=== PATIENT | male | born 1955 | race African-American/Black ===

== ENCOUNTER 2020-10-20 09:16 | Inpatient (IN) | payer MEDICAID ==
[~2020-10-20] VITALS: Ht 177.8 cm; Wt 73.9 kg
[~2020-10-20 09:16] MED LIST: BUME1TAB8 PO; CARV12.545 MT; SPIR25TA MT
[2020-10-20] MEDS ORDERED: ONDANSETRON HCL 4MG/2ML INJ IV STA (09:26)
[2020-10-20] MEDS ORDERED: SODIUM CHLORIDE 0.9% 1,000 ML IV ONE ×2 (09:30→11:45)
[2020-10-20 10:13] LABS: CHLORIDE 105 mEq/L (98-107)
[2020-10-20 10:16] LABS: BASOPHILS % 3.5 % (0.0-2.0); EOSINOPHILS % 1.9 % (0.0-5.0); HEMATOCRIT. 40.8 % (42.0-52.0); HEMOGLOBIN. 13.1 g/dL (14.0-18.0); INR 2.9; LYMPHOCYTES % 8.1 % (20.0-50.0); MEAN CORPUSCULAR HEMOGLOBIN 27.5 pg (28.0-32.0); MEAN CORPUSCULAR VOLUME 85.8 fL (80.0-94.0); MEAN PLATELET VOLUME 10.5 fl (7.4-10.4); MONOCYTES % 1.9 % (2.0-8.0); NEUTROPHILS % 84.6 % (40.0-76.0); PLATELET 477 x1000/uL (130-400); PROTHROMBIN TIME 28.2 sec (9.6-11.0); RED BLOOD CELL COUNT 4.76 mill/uL (4.7-6.1); RED CELL DISTRIBUTION WIDTH 21.2 % (11.6-14.6)
[2020-10-20] MEDS ORDERED: ENOXAPARIN 40MG/0.4ML SYR SUBCUT SCH (13:45)
[2020-10-20] MEDS ORDERED: DOCUSATE SODIUM 100MG CAPSULE PO PRN (13:45)
[2020-10-20] MEDS ORDERED: MAGNESIUM/ALUMINUM HYDROXIDE/SIMETHICONE 30ML UDC PO PRN (13:45)
[2020-10-20] MEDS ORDERED: KETOROLAC 15MG/ML VIAL IV PRN (13:45)
[2020-10-20] MEDS ORDERED: GUAIFENESIN 200MG/10ML SUGAR FREE UDC PO PRN (13:45)
[2020-10-20] MEDS ORDERED: NITROGLYCERIN 0.4MG TABLET SL SL PRN (13:45)
[2020-10-20] MEDS ORDERED: IPRATROPIUM/ALBUTEROL 0.5-3(2.5)MG/3ML NEB NEB PRN (13:45)
[2020-10-20] MEDS ORDERED: CLONIDINE 0.1MG TABLET PO PRN (13:45)
[2020-10-20] MEDS ORDERED: ACETAMINOPHEN 325MG TABLET PO PRN ×2 (13:45)
[2020-10-20] MEDS ORDERED: LORAZEPAM 2MG/ML CPJ IV PRN (13:45)
[2020-10-20] MEDS ORDERED: ONDANSETRON HCL 4MG/2ML INJ IV PRN (13:45)
[2020-10-20 15:57] VITALS: BP 147/91
[2020-10-20 16:00] VITALS: BP 140/80
[2020-10-20 16:48] LABS: CREATINE KINASE MB FRACTION 2.4 ng/mL (0.5-3.6)
[2020-10-20 16:59] LABS: FOLIC ACID (FOLATE) SERUM >20 ng/mL ng/mL (>5.38)
[2020-10-20 17:11] LABS: VITAMIN B12 SERUM >2000 pg/mL pg/mL (211-911)
[2020-10-20] MEDS: CARVEDILOL 3.125 MG TABLET PO SCH (17:42)
[2020-10-20] MEDS: METOCLOPRAMIDE 10MG/10 ML UDC PO SCH (17:42)
[2020-10-20] MEDS: SUCRALFATE 1 G/10 ML UDC PO SCH ×2 (17:43→20:53)
[2020-10-20 20:00] VITALS: BP 97/65
[2020-10-20] MEDS ORDERED: IMAT100T2 MT (20:03)
[2020-10-20] MEDS ORDERED: WARF-53 PO ×2 (20:03)
[2020-10-20] MEDS ORDERED: IMAT400T2 PO (20:03)
[2020-10-20] MEDS ORDERED: ASPI-1406 PO (20:03)
[2020-10-20] MEDS ORDERED: LOV40 SQ (20:03)
[2020-10-20] MEDS ORDERED: WARF10TA44 PO (20:03)
[2020-10-20] MEDS ORDERED: MECL-159 PO (20:03)
[2020-10-20] MEDS ORDERED: *PATIENT'S OWN MEDICATION STORAGE XX SCH (20:15)
[2020-10-20] MEDS: ACETAMINOPHEN 325MG TABLET PO PRN (20:53)
[2020-10-20] MEDS ORDERED: ZOLPIDEM TARTRATE 5MG TABLET PO PRN (21:00)
[2020-10-21] VITALS: BP 98/35
[2020-10-21 00:44] LABS: CREATINE KINASE MB FRACTION 2.1 ng/mL (0.5-3.6)
[2020-10-21] MEDS: ACETAMINOPHEN 325MG TABLET PO PRN (01:00)
[2020-10-21 01:11] LABS: CLARITY URINE CLEAR (CLEAR); COLOR URINE YELLOW (YELLOW); KETONES URINE 1+ (NEGATIVE); LEUKOCYTE ESTERASE URINE NEGATIVE (NEGATIVE); NITRITE URINE NEGATIVE (NEGATIVE); OCCULT BLOOD URINE NEGATIVE (NEGATIVE); PH URINE 5.5 (4.5-8.0); PROTEIN URINE 1+ (NEGATIVE); SPECIFIC GRAVITY URINE 1.024 (1.005-1.030)
[2020-10-21 01:15] LABS: *AMPHETAMINES SCREEN URINE NEGATIVE (NEGATIVE); *BARBITURATES SCREEN URINE NEGATIVE (NEGATIVE); *BENZODIAZEPINES SCREEN URINE NEGATIVE (NEGATIVE); *COCAINE SCREEN URINE NEGATIVE (NEGATIVE); METHADONE URINE SCREEN NEGATIVE (NEGATIVE); OPIATES URINE SCREEN NEGATIVE (NEGATIVE)
[2020-10-21 01:16] LABS: CANNABINOID URINE SCREEN PRESUMTIVE POSITIVE (NEGATIVE); PHENCYCLIDINE URINE SCREEN NEGATIVE (NEGATIVE)
[2020-10-21 04:00] VITALS: BP 111/70
[2020-10-21] MEDS: SUCRALFATE 1 G/10 ML UDC PO SCH ×4 (06:45→21:16)
[2020-10-21] MEDS: METOCLOPRAMIDE 10MG/10 ML UDC PO SCH ×3 (06:45→20:31)
[2020-10-21] MEDS: CARVEDILOL 3.125 MG TABLET PO SCH ×2 (06:46→18:00)
[2020-10-21 06:52] LABS: BASOPHILS % 1.2 % (0.0-2.0); CHLORIDE 108 mEq/L (98-107); EOSINOPHILS % 0.2 % (0.0-5.0); HEMATOCRIT. 35.4 % (42.0-52.0); HEMOGLOBIN. 11.2 g/dL (14.0-18.0); LYMPHOCYTES % 7.7 % (20.0-50.0); MEAN CORPUSCULAR HEMOGLOBIN 26.9 pg (28.0-32.0); MEAN CORPUSCULAR VOLUME 84.9 fL (80.0-94.0); MONOCYTES % 3.6 % (2.0-8.0); NEUTROPHILS % 87.3 % (40.0-76.0); PLATELET 381 x1000/uL (130-400); RED BLOOD CELL COUNT 4.17 mill/uL (4.7-6.1); RED CELL DISTRIBUTION WIDTH 21.2 % (11.6-14.6)
[2020-10-21 07:04] LABS: PHOSPHORUS 2.2 mg/dL (2.5-4.9)
[2020-10-21 08:00] VITALS: BP 114/75
[2020-10-21 12:20] VITALS: BP 101/72
[2020-10-21] MEDS: PANTOPRAZOLE SODIUM 40 MG/VIAL IV SCH (13:28)
[2020-10-21 17:50] VITALS: BP 99/73
[2020-10-21 20:00] VITALS: BP 96/58
[2020-10-22] VITALS: BP 97/66
[2020-10-22 04:00] VITALS: BP 102/66
[2020-10-22] MEDS: CARVEDILOL 3.125 MG TABLET PO SCH ×2 (05:58→17:34)
[2020-10-22] MEDS: METOCLOPRAMIDE 10MG/10 ML UDC PO SCH ×3 (05:58→17:35)
[2020-10-22] MEDS: SUCRALFATE 1 G/10 ML UDC PO SCH ×4 (05:58→20:13)
[2020-10-22 08:00] VITALS: BP 102/67
[2020-10-22] MEDS: PANTOPRAZOLE SODIUM 40 MG/VIAL IV SCH (08:51)
[2020-10-22] MEDS ORDERED: SODIUM CHLORIDE 0.9% 1,000 ML IV SCH (10:45)
[2020-10-22 12:00] VITALS: BP 105/73
[2020-10-22 16:00] VITALS: BP 98/65
[2020-10-22 20:00] VITALS: BP 114/61
[2020-10-22] MEDS ORDERED: CARVEDILOL 12.5MG TABLET PO SCH (22:50)
[2020-10-23] VITALS: BP 99/61
[2020-10-23 04:00] VITALS: BP 105/65
[2020-10-23] MEDS: SUCRALFATE 1 G/10 ML UDC PO SCH ×2 (05:54→10:59)
[2020-10-23] MEDS: METOCLOPRAMIDE 10MG/10 ML UDC PO SCH ×2 (05:54→10:59)
[2020-10-23 08:00] VITALS: BP 115/86
[2020-10-23] MEDS ORDERED: POTASSIUM CHLORIDE 20MEQ TABLET SR PO NR (09:15)
[2020-10-23] MEDS: PANTOPRAZOLE SODIUM 40 MG/VIAL IV SCH (09:35)
[2020-10-23] MEDS ORDERED: POTASSIUM-SODIUM PHOSPHATE POWDER PACKET PO NR (10:45)
[2020-10-23 11:14] VITALS: BP 115/86
== END 2020-10-23 12:45 | disposition home or self-care (01) | DRG 812 ==
LOC: ER 09:16 → 7EST 12:50 → EDBEDREQ 12:57 → EDBEDREQTM 12:57 → ENRESERV 13:21
PROVIDERS: ADMIT Internal Medicine; ATTEND Internal Medicine
DX: T40.7X1A Poisoning by cannabis (derivatives), accidental (unintentional), initial encounter (principal); C95.90 Leukemia, unspecified not having achieved remission; I48.91 Unspecified atrial fibrillation; E86.0 Dehydration; F12.10 Cannabis abuse, uncomplicated; D63.8 Anemia in other chronic diseases classified elsewhere; I10 Essential (primary) hypertension; I25.10 Atherosclerotic heart disease of native coronary artery without angina pectoris; Z79.899 Other long term (current) drug therapy; Z71.51 Drug abuse counseling and surveillance of drug abuser
CPT/HCPCS: 36415; 80053; 80061; 80305; 81003; 82550; 82553; 82607; 82746; 83036; 83540; 83550; 83735; 84100; 84484; 85025; 93005; 93970; 99285; C9113; J2405; J7030; J8597

== ENCOUNTER 2021-12-19 02:50 | Inpatient (IN) | payer MEDICAID ==
[~2021-12-19] VITALS: Ht 182.9 cm; Wt 71.4 kg
[~2021-12-19 02:50] MED LIST changes: +ASPI-1406 PO; +ENOX40SY27 SQ; +IMAT100T2 MT; +IMAT400T7 PO; +MECL-159 PO; +WARF-53 PO; +WARF10TA44 PO
[2021-12-19] MEDS ORDERED: IPRATROPIUM BROMIDE (0.02%) 0.5MG/2.5ML NEB HHN STA (02:53)
[2021-12-19] MEDS ORDERED: ALBUTEROL (0.083%) 2.5MG/3ML NEB HHN STA (02:53)
[2021-12-19] MEDS ORDERED: FUROSEMIDE 40MG/4ML VIAL IV ONE (03:00)
[2021-12-19 03:20] LABS: HEMATOCRIT. 33.8 % (42.0-52.0); HEMOGLOBIN. 10.9 g/dL (14.0-18.0); MEAN CORPUSCULAR HEMOGLOBIN 32.5 pg (28.0-32.0); MEAN CORPUSCULAR VOLUME 100.5 fL (80.0-94.0); MEAN PLATELET VOLUME 9.1 fl (7.4-10.4); PLATELET 598 x1000/uL (130-400); RED BLOOD CELL COUNT 3.36 mill/uL (4.7-6.1); RED CELL DISTRIBUTION WIDTH 17.4 % (11.6-14.6)
[2021-12-19 03:25] LABS: CHLORIDE 107 mEq/L (98-107)
[2021-12-19 03:52] LABS: PLATELET ESTIMATE INCREASED
[2021-12-19] MEDS ORDERED: FUROSEMIDE 40MG/4ML VIAL IV NR (05:45)
[2021-12-19 09:58] LABS: BG BASE EXCESS 2.8 mmol/L (-2.0-2.0); BG CARBOXYHEMOGLOBIN 0.7 % (0.5-1.5); BG DEOXYHEMOGLOBIN 2.6 % (0.0-5.0); BG FRACTION INSPIRED OXYGEN 36; BG HCO3 ACT 26.4 mmol/L (22.0-26.0); BG METHEMOGLOBIN 0.4 % (0.0-1.5); BG OXYGEN SATURATION 97.4 % (92.0-98.5); BG OXYHEMOGLOBIN 96.3 % (94.0-97.0); BG PH 7.471 (7.350-7.450); BG SAMPLE SITE RIGHT BRACHIAL; BG TOTAL HEMOGLOBIN 11.8 g/dL (12.0-18.0); BG VENT MODE NASAL CANNULA
[2021-12-19] MEDS ORDERED: DIPHENHYDRAMINE 50MG/ML VIAL IV PRN (10:00)
[2021-12-19] MEDS ORDERED: CLONIDINE 0.1MG TABLET PO PRN (10:00)
[2021-12-19] MEDS ORDERED: IPRATROPIUM/ALBUTEROL 0.5-3(2.5)MG/3ML NEB HHN PRN (10:00)
[2021-12-19] MEDS ORDERED: ZOLPIDEM TARTRATE 5MG TABLET PO PRN (10:00)
[2021-12-19] MEDS ORDERED: MAGNESIUM HYDROXIDE 400MG/5ML 30ML UDC PO PRN (10:00)
[2021-12-19] MEDS ORDERED: GUAIFENESIN 200MG/10ML SUGAR FREE UDC PO PRN (10:00)
[2021-12-19] MEDS ORDERED: MAGNESIUM/ALUMINUM HYDROXIDE/SIMETHICONE 30ML UDC PO PRN (10:00)
[2021-12-19] MEDS ORDERED: POTASSIUM CHLORIDE 20MEQ TABLET SR PO NR (10:00)
[2021-12-19] MEDS ORDERED: ACETAMINOPHEN 325MG TABLET PO PRN ×2 (10:00)
[2021-12-19] MEDS ORDERED: ENOXAPARIN 40MG/0.4ML SYR SUBCUT SCH (10:37)
[2021-12-19 12:00] VITALS: BP 93/71
[2021-12-19] MEDS ORDERED: IPRATROPIUM/ALBUTEROL 0.5-3(2.5)MG/3ML NEB HHN SCH (12:00)
[2021-12-19 12:06] VITALS: BP 93/71
[2021-12-19] MEDS ORDERED: CHOL400D7 MT (13:40)
[2021-12-19] MEDS ORDERED: BUME1TAB33 MT (13:40)
[2021-12-19] MEDS ORDERED: MECL-264 (13:40)
[2021-12-19] MEDS ORDERED: ALLO300T2 MT (13:40)
[2021-12-19] MEDS ORDERED: EMPA25TA MT (13:40)
[2021-12-19] MEDS ORDERED: ALLO100T57 PO (13:40)
[2021-12-19] MEDS ORDERED: ATOR80TA MT (13:40)
[2021-12-19] MEDS ORDERED: METH-653 GT (13:40)
[2021-12-19] MEDS ORDERED: RIVA20TA MT (13:40)
[2021-12-19] MEDS ORDERED: OMEP20CA14 PO (13:40)
[2021-12-19] MEDS ORDERED: FERR325T6 MT (13:40)
[2021-12-19] MEDS: SODIUM CHLORIDE 0.9% INJ 3ML FLUSH IVF SCH ×2 (14:00→22:00)
[2021-12-19] MEDS: BUDESONIDE 0.5MG/2ML NEB HHN SCH ×2 (14:14→22:55)
[2021-12-19 16:00] VITALS: BP 101/73
[2021-12-19] MEDS: POTASSIUM CHLORIDE 20MEQ TABLET SR PO SCH (17:04)
[2021-12-19] MEDS: ONDANSETRON HCL 4MG/2ML INJ IV PRN (17:43)
[2021-12-19] MEDS ORDERED: METHOCARBAMOL 750MG TABLET PO PRN (18:00)
[2021-12-19] MEDS ORDERED: MECLIZINE 25MG TABLET PO PRN (18:00)
[2021-12-19] MEDS: INSULIN LISPRO 100 UNITS/ML SUBCUT SCH ×2 (18:10→21:00)
[2021-12-19] MEDS ORDERED: DEXTROSE 50% WATER 50ML SYRINGE IV PRN (18:15)
[2021-12-19 20:00] VITALS: BP 110/79
[2021-12-19] MEDS: ATORVASTATIN CALCIUM 40MG TABLET PO SCH (20:56)
[2021-12-19] MEDS: BUMETANIDE 1MG/4ML VIAL IV SCH (20:57)
[2021-12-19] MEDS: OMEPRAZOLE 20MG CAPSULE EXTENDED RELEASE PO SCH (20:58)
[2021-12-19] MEDS: BLOOD SUGAR DIAGNOSTIC STRIP TEST SCH (21:00)
[2021-12-19] MEDS ORDERED: FAMOTIDINE 20MG TABLET PO SCH (21:00)
[2021-12-20] VITALS: BP 103/64
[2021-12-20 04:00] VITALS: BP 98/68
[2021-12-20] MEDS: SODIUM CHLORIDE 0.9% INJ 3ML FLUSH IVF SCH ×3 (05:50→21:12)
[2021-12-20] MEDS: BLOOD SUGAR DIAGNOSTIC STRIP TEST SCH ×4 (05:52→21:11)
[2021-12-20 06:50] LABS: BASOPHILS % 0.6 % (0.0-2.0); EOSINOPHILS % 4.9 % (0.0-5.0); HEMATOCRIT. 33.3 % (42.0-52.0); LYMPHOCYTES % 9.8 % (20.0-50.0); MEAN CORPUSCULAR HEMOGLOBIN 32.6 pg (28.0-32.0); MEAN CORPUSCULAR VOLUME 99.3 fL (80.0-94.0); MEAN PLATELET VOLUME 9.9 fl (7.4-10.4); MONOCYTES % 5.7 % (2.0-8.0); PLATELET 556 x1000/uL (130-400); RED BLOOD CELL COUNT 3.36 mill/uL (4.7-6.1); RED CELL DISTRIBUTION WIDTH 17.2 % (11.6-14.6)
[2021-12-20] MEDS: INSULIN LISPRO 100 UNITS/ML SUBCUT SCH ×4 (07:43→21:00)
[2021-12-20] MEDS: BUDESONIDE 0.5MG/2ML NEB HHN SCH ×2 (07:47→20:46)
[2021-12-20 07:49] LABS: CHLORIDE 104 mEq/L (98-107)
[2021-12-20 07:54] LABS: PHOSPHORUS 3.2 mg/dL (2.5-4.9)
[2021-12-20 08:00] VITALS: BP 115/76
[2021-12-20] MEDS: ALLOPURINOL 300 MG TABLET PO SCH ×2 (08:46→16:33)
[2021-12-20] MEDS: OMEPRAZOLE 20MG CAPSULE EXTENDED RELEASE PO SCH ×2 (08:46→21:11)
[2021-12-20] MEDS: GLEEVEC 400 MG PO SCH (08:46)
[2021-12-20] MEDS: POTASSIUM CHLORIDE 20MEQ TABLET SR PO SCH ×3 (08:46→16:32)
[2021-12-20] MEDS: FERROUS SULFATE 325MG TABLET PO SCH (08:46)
[2021-12-20] MEDS: CHOLECALCIFEROL (D3) 1000 UNIT TABLET PO SCH (08:47)
[2021-12-20] MEDS ORDERED: FUROSEMIDE 40MG/4ML VIAL IVP SCH (09:00)
[2021-12-20 09:12] LABS: BG BASE EXCESS 0.3 mmol/L (-2.0-2.0); BG CARBOXYHEMOGLOBIN 0.2 % (0.5-1.5); BG DEOXYHEMOGLOBIN 8.1 % (0.0-5.0); BG FRACTION INSPIRED OXYGEN 21; BG HCO3 ACT 24.1 mmol/L (22.0-26.0); BG METHEMOGLOBIN 0.3 % (0.0-1.5); BG OXYGEN SATURATION 91.9 % (92.0-98.5); BG OXYHEMOGLOBIN 91.4 % (94.0-97.0); BG PCO2 35.9 mmHg (35.0-45.0); BG PH 7.445 (7.350-7.450); BG PO2 65.1 mmHg (75.0-100.0); BG SAMPLE SITE RIGHT FEMORAL; BG TOTAL HEMOGLOBIN 11.5 g/dL (12.0-18.0); BG VENT MODE ROOM AIR
[2021-12-20] MEDS: BUMETANIDE 1MG/4ML VIAL IV SCH ×2 (11:08→21:11)
[2021-12-20] MEDS: ONDANSETRON HCL 4MG/2ML INJ IV PRN (11:17)
[2021-12-20 12:00] VITALS: BP 107/77
[2021-12-20] MEDS ORDERED: MAGNESIUM 1 G PREMIX 100 ML IV SCH (12:00)
[2021-12-20 16:00] VITALS: BP 93/70
[2021-12-20] MEDS: RIVAROXABAN 20 MG TABLET PO SCH (16:33)
[2021-12-20] MEDS ORDERED: LOPERAMIDE HCL 2MG CAPSULE PO PRN (18:00)
[2021-12-20 20:00] VITALS: BP 110/78
[2021-12-20] MEDS: ATORVASTATIN CALCIUM 40MG TABLET PO SCH (21:11)
[2021-12-21] VITALS: BP 101/70
[2021-12-21 04:00] VITALS: BP 115/72
[2021-12-21] MEDS: SODIUM CHLORIDE 0.9% INJ 3ML FLUSH IVF SCH ×3 (06:00→21:24)
[2021-12-21] MEDS: BLOOD SUGAR DIAGNOSTIC STRIP TEST SCH ×4 (06:51→21:00)
[2021-12-21] MEDS: OMEPRAZOLE 20MG CAPSULE EXTENDED RELEASE PO SCH ×2 (07:40→21:23)
[2021-12-21 08:00] VITALS: BP 104/71
[2021-12-21] MEDS: INSULIN LISPRO 100 UNITS/ML SUBCUT SCH ×4 (08:10→21:00)
[2021-12-21] MEDS: BUMETANIDE 1MG/4ML VIAL IV SCH ×2 (08:28→21:23)
[2021-12-21] MEDS: ONDANSETRON HCL 4MG/2ML INJ IV PRN ×2 (08:28→14:01)
[2021-12-21] MEDS: BUDESONIDE 0.5MG/2ML NEB HHN SCH ×2 (08:51→21:23)
[2021-12-21] MEDS: LOSARTAN POTASSIUM 25 MG TABLET PO SCH (08:55)
[2021-12-21] MEDS: ALLOPURINOL 300 MG TABLET PO SCH ×2 (08:55→17:05)
[2021-12-21] MEDS: CHOLECALCIFEROL (D3) 1000 UNIT TABLET PO SCH (08:55)
[2021-12-21] MEDS: POTASSIUM CHLORIDE 20MEQ TABLET SR PO SCH (08:55)
[2021-12-21] MEDS: FERROUS SULFATE 325MG TABLET PO SCH (08:55)
[2021-12-21] MEDS: GLEEVEC 400 MG PO SCH (09:00)
[2021-12-21] MEDS ORDERED: FUROSEMIDE 40MG/4ML VIAL IVP SCH (09:00)
[2021-12-21] MEDS ORDERED: MAGNESIUM 4 G PREMIX 100 ML IV SCH (11:00)
[2021-12-21 12:00] VITALS: BP 104/76
[2021-12-21 13:25] LABS: CHLORIDE 103 mEq/L (98-107)
[2021-12-21 16:00] VITALS: BP 96/69
[2021-12-21] MEDS: RIVAROXABAN 20 MG TABLET PO SCH (17:05)
[2021-12-21 20:00] VITALS: BP 117/63
[2021-12-21] MEDS: ATORVASTATIN CALCIUM 40MG TABLET PO SCH (21:23)
[2021-12-22] VITALS (11 sets, daily range): BP systolic 98–146; BP diastolic 43–104
[2021-12-22] MEDS: SODIUM CHLORIDE 0.9% INJ 3ML FLUSH IVF SCH ×2 (05:40→14:14)
[2021-12-22] MEDS: OMEPRAZOLE 20MG CAPSULE EXTENDED RELEASE PO SCH ×2 (07:01→20:34)
[2021-12-22] MEDS: BLOOD SUGAR DIAGNOSTIC STRIP TEST SCH ×3 (07:02→20:34)
[2021-12-22] MEDS: INSULIN LISPRO 100 UNITS/ML SUBCUT SCH ×3 (07:02→20:34)
[2021-12-22] MEDS ORDERED: NICARDIPINE 100MCG/ML 10ML VIAL (CATH LAB) IV ONE (08:00)
[2021-12-22] MEDS ORDERED: NITROGLYCERIN 50MCG/ML 10ML VIAL (CATH LAB) IV ONE (08:00)
[2021-12-22] MEDS: CHOLECALCIFEROL (D3) 1000 UNIT TABLET PO SCH (08:02)
[2021-12-22] MEDS: POTASSIUM CHLORIDE 20MEQ TABLET SR PO SCH (08:02)
[2021-12-22] MEDS: GLEEVEC 400 MG PO SCH (08:02)
[2021-12-22] MEDS: FERROUS SULFATE 325MG TABLET PO SCH (08:02)
[2021-12-22] MEDS: ALLOPURINOL 300 MG TABLET PO SCH ×2 (08:03→18:15)
[2021-12-22] MEDS: LOSARTAN POTASSIUM 25 MG TABLET PO SCH (08:03)
[2021-12-22] MEDS: BUMETANIDE 1MG/4ML VIAL IV SCH ×2 (08:36→20:34)
[2021-12-22] MEDS: BUDESONIDE 0.5MG/2ML NEB HHN SCH (09:15)
[2021-12-22] MEDS ORDERED: LIDOCAINE HCL 2% JELLY 5ML ONE ×2 (14:43→15:21)
[2021-12-22] MEDS ORDERED: MIDAZOLAM HCL 2 MG/2 ML VIAL ONE ×2 (14:46→15:19)
[2021-12-22] MEDS ORDERED: FENTANYL CITRATE/PF 50MCG/ML 2ML VIAL ONE (14:46)
[2021-12-22] MEDS ORDERED: HEPARIN SODIUM 1,000 UNIT/1ML VIAL IV ONE (14:46)
[2021-12-22] MEDS ORDERED: TETRACAINE/BENZOCAINE/BUTAMBEN 20 GM SPRAY MM ONE ×2 (14:47→15:20)
[2021-12-22] MEDS ORDERED: IODIXANOL 320MG/ML 100 ML BOTTLE IV ONE (14:47)
[2021-12-22] MEDS ORDERED: LIDOCAINE HCL/PF 2% 20MG/ML 5 ML/VIAL ONE (14:49)
[2021-12-22] MEDS ORDERED: LIDOCAINE HCL/PF 1% 10 MG/ML 5ML VIAL ONE ×2 (14:51→15:31)
[2021-12-22 16:10] LABS: BG BASE EXCESS 2.4 mmol/L (-2.0-2.0); BG BASE EXCESS 4.6 mmol/L (-2.0-2.0); BG CARBOXYHEMOGLOBIN 0.4 % (0.5-1.5); BG CARBOXYHEMOGLOBIN 0.9 % (0.5-1.5); BG DEOXYHEMOGLOBIN 3.3 % (0.0-5.0); BG FRACTION INSPIRED OXYGEN 100; BG HCO3 ACT 26.9 mmol/L (22.0-26.0); BG HCO3 ACT 30.4 mmol/L (22.0-26.0); BG METHEMOGLOBIN 0.1 % (0.0-1.5); BG METHEMOGLOBIN 0.3 % (0.0-1.5); BG OXYGEN SATURATION 63.6 % (92.0-98.5); BG OXYGEN SATURATION 96.7 % (92.0-98.5); BG OXYHEMOGLOBIN 62.8 % (94.0-97.0); BG OXYHEMOGLOBIN 96.2 % (94.0-97.0); BG PCO2 41.5 mmHg (35.0-45.0); BG PH 7.402 (7.350-7.450); BG PO2 35.4 mmHg (75.0-100.0); BG PO2 92.8 mmHg (75.0-100.0); BG SAMPLE SITE ALINE; BG SAMPLE SITE PL; BG TOTAL HEMOGLOBIN 13.6 g/dL (12.0-18.0); BG TOTAL HEMOGLOBIN 13.7 g/dL (12.0-18.0); BG VENT MODE VENT - AC
[2021-12-22] MEDS ORDERED: ACETAMINOPHEN 325MG TABLET PO PRN (16:30)
[2021-12-22] MEDS ORDERED: ATROPINE SULFATE 1MG/10ML SYR IV PRN (16:30)
[2021-12-22] MEDS: RIVAROXABAN 20 MG TABLET PO SCH (18:15)
[2021-12-22] MEDS: ATORVASTATIN CALCIUM 40MG TABLET PO SCH (20:34)
[2021-12-22] MEDS ORDERED: DILTIAZEM HCL 125 MG in DEXT 5% WATER 100 ML IV PRN (21:15)
[2021-12-22] MEDS ORDERED: DILTIAZEM 125MG/125ML PMX 125 ML IV PRN (21:15)
[2021-12-23] VITALS (12 sets, daily range): BP systolic 98–138; BP diastolic 49–79
[2021-12-23] MEDS: SODIUM CHLORIDE 0.9% INJ 3ML FLUSH IVF SCH ×3 (06:37→14:51)
[2021-12-23] MEDS: BLOOD SUGAR DIAGNOSTIC STRIP TEST SCH ×2 (06:37→11:43)
[2021-12-23] MEDS: OMEPRAZOLE 20MG CAPSULE EXTENDED RELEASE PO SCH (06:37)
[2021-12-23] MEDS: ONDANSETRON HCL 4MG/2ML INJ IV PRN (06:42)
[2021-12-23] MEDS: INSULIN LISPRO 100 UNITS/ML SUBCUT SCH ×2 (07:20→11:43)
[2021-12-23] MEDS: LOSARTAN POTASSIUM 25 MG TABLET PO SCH ×2 (08:26→09:32)
[2021-12-23] MEDS: CARVEDILOL 3.125 MG TABLET PO SCH ×2 (08:27→09:32)
[2021-12-23] MEDS ORDERED: BUMETANIDE 1MG TABLET PO SCH ×2 (09:00→10:00)
[2021-12-23] MEDS: CHOLECALCIFEROL (D3) 1000 UNIT TABLET PO SCH (09:28)
[2021-12-23] MEDS: POTASSIUM CHLORIDE 20MEQ TABLET SR PO SCH (09:28)
[2021-12-23] MEDS: FERROUS SULFATE 325MG TABLET PO SCH (09:29)
[2021-12-23] MEDS: ALLOPURINOL 300 MG TABLET PO SCH (09:29)
[2021-12-23] MEDS: GLEEVEC 400 MG PO SCH (09:55)
[2021-12-23] MEDS ORDERED: *PATIENT'S OWN MEDICATION STORAGE XX SCH (10:15)
[2021-12-23] MEDS ORDERED: ALLO300T2 PO (10:37)
[2021-12-23] MEDS ORDERED: BUME1TAB33 PO (10:39)
[2021-12-23] MEDS ORDERED: FERR325T6 PO (10:41)
[2021-12-23] MEDS ORDERED: MECL-159 PO (10:42)
[2021-12-23] MEDS ORDERED: METH-773 PO (10:45)
[2021-12-23] MEDS ORDERED: OMEP20TA15 PO (10:46)
[2021-12-23] MEDS ORDERED: METO-396 PO (10:47)
[2021-12-23] MEDS ORDERED: ACET-2708 PO (11:01)
[2021-12-23] MEDS ORDERED: CHOL200010 PO (11:05)
[2021-12-23] MEDS ORDERED: METHOCARBAMOL 500MG TABLET PO PRN (21:00)
== END 2021-12-23 14:30 | disposition home or self-care (01) | DRG 192 ==
LOC: ER 02:50 → ENRESERV 06:47 → CANRESERV 06:47 → EDBEDREQSVC 10:12 → ENRESERV 10:16 → 7WST 11:14 → 3WST 12-22 17:34
PROVIDERS: ADMIT Internal Medicine; ATTEND Internal Medicine
PROC: 5A09357 Assistance with Respiratory Ventilation, Less than 24 Consecutive Hours, Continuous Positive Airway Pressure (ICD-10-PCS; 2021-12-19)
PROC: 4A023N8 Measurement of Cardiac Sampling and Pressure, Bilateral, Percutaneous Approach (ICD-10-PCS; principal; 2021-12-22)
PROC: B2111ZZ Fluoroscopy of Multiple Coronary Arteries using Low Osmolar Contrast (ICD-10-PCS; 2021-12-22)
PROC: B2151ZZ Fluoroscopy of Left Heart using Low Osmolar Contrast (ICD-10-PCS; 2021-12-22)
PROC: B24BZZ4 Ultrasonography of Heart with Aorta, Transesophageal (ICD-10-PCS; 2021-12-22)
DX: I11.0 Hypertensive heart disease with heart failure (principal); J96.01 Acute respiratory failure with hypoxia; E44.1 Mild protein-calorie malnutrition; I34.0 Nonrheumatic mitral (valve) insufficiency; I50.23 Acute on chronic systolic (congestive) heart failure; I42.0 Dilated cardiomyopathy; I48.92 Unspecified atrial flutter; I07.1 Rheumatic tricuspid insufficiency; E87.6 Hypokalemia; J44.9 Chronic obstructive pulmonary disease, unspecified; F12.90 Cannabis use, unspecified, uncomplicated; I48.20 Chronic atrial fibrillation, unspecified; R74.01 Elevation of levels of liver transaminase levels; Z68.21 Body mass index [BMI] 21.0-21.9, adult; Z20.822 Contact with and (suspected) exposure to COVID-19; Z79.01 Long term (current) use of anticoagulants; Z85.9 Personal history of malignant neoplasm, unspecified; Z85.6 Personal history of leukemia; Z87.891 Personal history of nicotine dependence
CPT/HCPCS: 36415; 36600; 71045; 80048; 80053; 82375; 82805; 82962; 83036; 83735; 83880; 84100; 84484; 85025; 87426; 93005; 93306; 93312; 93460; 94640; 94660; 94664; 99291; C1760; C1769; C1887; C1893; C9803; J1644; J1650; J1940; J2250; J2405; J3010; J3475; J3490; J7626; Q9967

== ENCOUNTER 2022-02-21 05:03 | Inpatient (IN) | payer MEDICAID ==
[2022-02-21] VITALS (44 sets, daily range): BP systolic 81–136; BP diastolic 32–81
[~2022-02-21] VITALS: Ht 182.9 cm; Wt 73.5 kg
[~2022-02-21 05:03] MED LIST changes: +ACET-2708 PO; +ALLO300T2 PO; +ATOR80TA MT; +BUME1TAB33 PO; -BUME1TAB8 PO; +CHOL200010 PO; +CHOL400D7 MT; +EMPA25TA MT; -ENOX40SY27 SQ; +FERR325T6 PO; +METH-773 PO; +METO-396 PO; +OMEP20TA15 PO; +RIVA20TA MT; -WARF-53 PO; -WARF10TA44 PO
[2022-02-21] MEDS ORDERED: MORPHINE SULFATE 4 MG/ML CPJ (NOT FOR IM USE) IV ONE (06:00)
[2022-02-21 06:40] LABS: BASOPHILS % 1.1 % (0.0-2.0); EOSINOPHILS % 8.8 % (0.0-5.0); HEMATOCRIT. 39.2 % (42.0-52.0); HEMOGLOBIN. 12.2 g/dL (14.0-18.0); LYMPHOCYTES % 10.9 % (20.0-50.0); MEAN CORPUSCULAR HEMOGLOBIN 30.4 pg (28.0-32.0); MEAN CORPUSCULAR VOLUME 97.6 fL (80.0-94.0); NEUTROPHILS % 72.2 % (40.0-76.0); PLATELET 447 x1000/uL (130-400); RED BLOOD CELL COUNT 4.02 mill/uL (4.7-6.1); RED CELL DISTRIBUTION WIDTH 16.9 % (11.6-14.6)
[2022-02-21 06:53] LABS: CHLORIDE 107 mEq/L (98-107)
[2022-02-21] MEDS ORDERED: ASCORBIC ACID 500 MG TABLET PO NR (08:00)
[2022-02-21] MEDS ORDERED: ALLOPURINOL 300 MG TABLET PO SCH (08:00)
[2022-02-21] MEDS ORDERED: CHLORHEXIDINE GLUCONATE 4% EXTERNAL USE TOP SCH ×2 (09:00→21:00)
[2022-02-21] MEDS ORDERED: POLYMYXIN B SULFATE 500000 UNITS/VIAL ONE (09:21)
[2022-02-21] MEDS ORDERED: THROMBIN (BOVINE) 5000 UNITS/VIAL TOP ONE ×2 (09:21→16:09)
[2022-02-21] MEDS ORDERED: DOPAMINE 400MG/250ML PREMIX 250 ML IV ONE (09:22)
[2022-02-21] MEDS ORDERED: NICARDIPINE 40MG/200ML PREMIX 200 ML IV ONE (09:24)
[2022-02-21] MEDS ORDERED: SEVOFLURANE 250 ML LIQUID INH ONE (09:24)
[2022-02-21] MEDS ORDERED: HEPARIN 1000 UNITS/ML 10ML ONE ×2 (09:25→15:40)
[2022-02-21] MEDS ORDERED: NICARDIPINE 40MG/200ML PREMIX 200 ML IV NR (13:00)
[2022-02-21] MEDS ORDERED: EPINEPHRINE 5 MG in DEXT 5% WATER 245 ML IV NR (13:00)
[2022-02-21] MEDS ORDERED: DEL NIDO ELECTROLYTE-S(PH 7.4) 1,000 ML IV NR ×2 (13:00)
[2022-02-21] MEDS ORDERED: INSULIN REGULAR 100U/100ML PMX 100 ML IV NR (13:00)
[2022-02-21] MEDS ORDERED: DOBUTAMINE 250MG PREMIX 250 ML IV NR (13:00)
[2022-02-21] MEDS ORDERED: DOBUTAMINE 250 MG in DEXT 5% WATER 230 ML IV NR (13:00)
[2022-02-21] MEDS ORDERED: DOPAMINE 400MG/250ML PREMIX 250 ML IV SCH (13:00)
[2022-02-21] MEDS ORDERED: CEFAZOLIN 2,000 MG in DEXT 5% WATER 100 ML IV NR (13:00)
[2022-02-21] MEDS ORDERED: NOREPINEPHRINE 8 MG in DEXT 5% WATER 242 ML IV NR (13:00)
[2022-02-21] MEDS ORDERED: MILRINONE 20MG-DEXT 5% PREMIX 100 ML IV ONE (13:13)
[2022-02-21] MEDS ORDERED: PROPOFOL 10MG/ML 100ML 0 ML IV ONE (13:15)
[2022-02-21] MEDS ORDERED: PROPOFOL 10MG/ML 100ML 100 ML IV ONE (13:16)
[2022-02-21] MEDS ORDERED: ROCURONIUM BROMIDE 10MG/ML VIAL 5ML IV ONE (13:17)
[2022-02-21] MEDS ORDERED: AMIODARONE HCL 900 MG in DEXT 5% WATER 500 ML IV PRN (13:45)
[2022-02-21] MEDS ORDERED: LEVOTHYROXINE SODIUM 100 MCG/ VIAL IV ONE (14:00)
[2022-02-21] MEDS ORDERED: MAGNESIUM 2 G PREMIX 50 ML IV PRN ×2 (14:15→16:45)
[2022-02-21] MEDS ORDERED: DEXTROSE 50% WATER 50ML SYRINGE IV PRN ×2 (14:15)
[2022-02-21] MEDS ORDERED: MAGNESIUM SULFATE 3 GM in DEXT 5% WATER 100 ML IV PRN ×2 (14:15→17:30)
[2022-02-21] MEDS ORDERED: BLOOD SUGAR DIAGNOSTIC STRIP TEST SCH ×2 (15:00→16:00)
[2022-02-21] MEDS ORDERED: CALCIUM CHLORIDE 1GM/10ML SYR IV ONE (15:38)
[2022-02-21] MEDS ORDERED: PROTAMINE SULFATE 10MG/ML VIAL 25ML IV ONE ×2 (15:39→16:33)
[2022-02-21] MEDS ORDERED: DEXMEDETOMIDINE 400 MCG/100 ML 100 ML IV ONE (15:43)
[2022-02-21 16:11] LABS: CHLORIDE 96 mEq/L (98-107)
[2022-02-21] MEDS ORDERED: KETOROLAC 30MG/ML VIAL ONE (16:23)
[2022-02-21] MEDS ORDERED: NEOSTIGMINE METHYLSULFATE 1MG/ML 10 ML VIAL ONE (16:24)
[2022-02-21] MEDS ORDERED: GLYCOPYRROLATE 0.2 MG/ML 2ML VIAL ONE ×2 (16:24)
[2022-02-21] MEDS ORDERED: FENTANYL CITRATE/PF 50MCG/ML 2ML VIAL ONE (16:33)
[2022-02-21] MEDS ORDERED: ALBUMIN HUMAN 12.5G/250ML (5%) IV PRN (16:45)
[2022-02-21] MEDS ORDERED: CALCIUM CHLORIDE 3,000 MG in DEXT 5% WATER 250 ML IV PRN (16:45)
[2022-02-21] MEDS ORDERED: MAGNESIUM 1 G PREMIX 100 ML IV PRN (16:45)
[2022-02-21] MEDS ORDERED: ALBUMIN HUMAN 25GM/100ML (25%) IV PRN (16:45)
[2022-02-21] MEDS ORDERED: ACETAMINOPHEN 325MG TABLET PO PRN (16:45)
[2022-02-21] MEDS ORDERED: CALCIUM CHLORIDE 5,000 MG in DEXT 5% WATER 500 ML IV PRN (16:45)
[2022-02-21] MEDS ORDERED: SODIUM BICARBONATE 8.4% 1 MEQ/ML 50ML SYR IV ONE (16:58)
[2022-02-21] MEDS: DOCUSATE SODIUM 100MG CAPSULE PO SCH (17:00)
[2022-02-21] MEDS ORDERED: SODIUM CHLORIDE 0.9% 500 ML IV PRN (17:15)
[2022-02-21] MEDS ORDERED: DOPAMINE 400MG/250ML PREMIX 250 ML IV PRN (17:15)
[2022-02-21] MEDS: KETOROLAC 30MG/ML VIAL IV PRN ×2 (17:23→19:46)
[2022-02-21 17:40] LABS: BG BASE EXCESS 1.2 mmol/L (-2.0-2.0); BG CARBOXYHEMOGLOBIN 0.3 % (0.5-1.5); BG DEOXYHEMOGLOBIN 2.3 % (0.0-5.0); BG FRACTION INSPIRED OXYGEN 21; BG HCO3 ACT 25.9 mmol/L (22.0-26.0); BG METHEMOGLOBIN 0.2 % (0.0-1.5); BG OXYGEN SATURATION 97.7 % (92.0-98.5); BG OXYHEMOGLOBIN 97.2 % (94.0-97.0); BG PCO2 41.5 mmHg (35.0-45.0); BG PH 7.413 (7.350-7.450); BG PO2 134.7 mmHg (75.0-100.0); BG SAMPLE SITE ALINE; BG TOTAL HEMOGLOBIN 10.3 g/dL (12.0-18.0); BG VENT MODE ROOM AIR
[2022-02-21 17:43] LABS: HEMATOCRIT. 23.4 % (42.0-52.0); HEMOGLOBIN. 7.4 g/dL (14.0-18.0); MEAN CORPUSCULAR HEMOGLOBIN 29.7 pg (28.0-32.0); MEAN CORPUSCULAR VOLUME 93.6 fL (80.0-94.0); MEAN PLATELET VOLUME 8.8 fl (7.4-10.4); PLATELET 248 x1000/uL (130-400); RED CELL DISTRIBUTION WIDTH 16.9 % (11.6-14.6)
[2022-02-21 17:58] LABS: CHLORIDE 115 mEq/L (98-107)
[2022-02-21] MEDS ORDERED: CEFAZOLIN 1000MG PREMIX 50 ML IV SCH (18:00)
[2022-02-21] MEDS ORDERED: BACITRACIN 15GM TUBE TOP SCH (18:00)
[2022-02-21] MEDS: INSULIN REGULAR 100U/100ML PMX 100 ML IV SCH ×2 (18:23→23:51)
[2022-02-21 18:30] LABS: PLATELET ESTIMATE NORMAL
[2022-02-21] MEDS: BLOOD SUGAR DIAGNOSTIC STRIP TEST SCH ×6 (18:34→23:36)
[2022-02-21] MEDS ORDERED: AMIODARONE HCL 900 MG in DEXT 5% WATER 482 ML IV PRN (19:00)
[2022-02-21] MEDS ORDERED: LIDOCAINE HCL 1% 10 MG/ML 10ML VIAL ONE (19:03)
[2022-02-21 19:04] LABS: HEMOGLOBIN. 10.1 g/dL (14.0-18.0); MEAN CORPUSCULAR HEMOGLOBIN 30.4 pg (28.0-32.0); MEAN CORPUSCULAR VOLUME 93.3 fL (80.0-94.0); MEAN PLATELET VOLUME 8.9 fl (7.4-10.4); PLATELET 331 x1000/uL (130-400); RED BLOOD CELL COUNT 3.32 mill/uL (4.7-6.1); RED CELL DISTRIBUTION WIDTH 16.9 % (11.6-14.6)
[2022-02-21 19:17] LABS: CHLORIDE 105 mEq/L (98-107)
[2022-02-21] MEDS: DEXT 5%/0.45% NACL 1000ML 1,000 ML IV SCH (19:25)
[2022-02-21 19:29] LABS: INR 1.3; PROTHROMBIN TIME 13.6 sec (9.6-11.0)
[2022-02-21] MEDS ORDERED: ALBUMIN HUMAN 12.5G/250ML (5%) IV ONE (19:30)
[2022-02-21] MEDS: EPINEPHRINE 5 MG in DEXT 5% WATER 245 ML IV PRN (19:39)
[2022-02-21] MEDS ORDERED: KCL 10MEQ/50ML PREMIX 150 ML IV PRN (19:45)
[2022-02-21] MEDS ORDERED: KCL 10MEQ/50ML PREMIX 200 ML IV PRN (19:45)
[2022-02-21] MEDS: ONDANSETRON HCL 4MG/2ML INJ IV PRN ×2 (19:46→23:30)
[2022-02-21] MEDS: KCL 10MEQ/50ML PREMIX 100 ML IV PRN ×3 (19:54→22:05)
[2022-02-21] MEDS: IPRATROPIUM/ALBUTEROL 0.5-3(2.5)MG/3ML NEB HHN SCH (20:43)
[2022-02-21 21:30] LABS: PLATELET ESTIMATE NORMAL
[2022-02-21] MEDS: CEFAZOLIN 1000MG PREMIX 50 ML IV SCH (21:35)
[2022-02-21] MEDS ORDERED: ALBUMIN HUMAN 25GM/100ML (25%) IV NR (23:30)
[2022-02-22] VITALS (143 sets, daily range): BP systolic 81–178; BP diastolic 25–99
[2022-02-22] MEDS: IPRATROPIUM/ALBUTEROL 0.5-3(2.5)MG/3ML NEB HHN SCH ×6 (00:03→20:27)
[2022-02-22] MEDS: BLOOD SUGAR DIAGNOSTIC STRIP TEST SCH ×24 (00:18→23:30)
[2022-02-22 00:50] LABS: HEMATOCRIT. 24.1 % (42.0-52.0); HEMOGLOBIN. 7.6 g/dL (14.0-18.0); MEAN CORPUSCULAR HEMOGLOBIN 29.8 pg (28.0-32.0); MEAN CORPUSCULAR VOLUME 93.8 fL (80.0-94.0); MEAN PLATELET VOLUME 8.6 fl (7.4-10.4); PLATELET 271 x1000/uL (130-400); RED BLOOD CELL COUNT 2.57 mill/uL (4.7-6.1); RED CELL DISTRIBUTION WIDTH 16.8 % (11.6-14.6)
[2022-02-22 01:48] LABS: CHLORIDE 109 mEq/L (98-107)
[2022-02-22] MEDS: EPINEPHRINE 5 MG in DEXT 5% WATER 245 ML IV PRN ×2 (02:25→09:43)
[2022-02-22] MEDS ORDERED: POTASSIUM CHLORIDE INJ 40 MEQ in DEXT 5% WATER 250 ML IV ONE (03:45)
[2022-02-22] MEDS: MAGNESIUM 1 G PREMIX 100 ML IV PRN ×2 (03:48→04:51)
[2022-02-22] MEDS: KCL 20MEQ/100ML X 2 FOR TOTAL KCL 40MEQ/200ML IV SCH ×2 (03:57→05:04)
[2022-02-22] MEDS: ONDANSETRON HCL 4MG/2ML INJ IV PRN ×4 (05:34→23:28)
[2022-02-22 05:39] LABS: HEMATOCRIT. 21.2 % (42.0-52.0); MEAN CORPUSCULAR HEMOGLOBIN 30.1 pg (28.0-32.0); MEAN CORPUSCULAR VOLUME 94.3 fL (80.0-94.0); MEAN PLATELET VOLUME 9.4 fl (7.4-10.4); PLATELET 253 x1000/uL (130-400); RED BLOOD CELL COUNT 2.25 mill/uL (4.7-6.1); RED CELL DISTRIBUTION WIDTH 16.7 % (11.6-14.6)
[2022-02-22] MEDS: CEFAZOLIN 1000MG PREMIX 50 ML IV SCH ×3 (05:49→20:11)
[2022-02-22 05:54] LABS: CHLORIDE 109 mEq/L (98-107)
[2022-02-22 06:27] LABS: HEMOGLOBIN. 6.8 g/dL (14.0-18.0)
[2022-02-22] MEDS ORDERED: FUROSEMIDE 40MG/4ML VIAL IVP NR (06:45)
[2022-02-22] MEDS: DOCUSATE SODIUM 100MG CAPSULE PO SCH ×2 (08:32→18:16)
[2022-02-22] MEDS: FAMOTIDINE 20MG/2ML VIAL IV SCH (08:32)
[2022-02-22] MEDS ORDERED: ALBUMIN HUMAN 12.5G/250ML (5%) IV NR (09:00)
[2022-02-22 09:40] LABS: MEAN CORPUSCULAR HEMOGLOBIN 29.1 pg (28.0-32.0); MEAN CORPUSCULAR VOLUME 92.7 fL (80.0-94.0); MEAN PLATELET VOLUME 9.2 fl (7.4-10.4); PLATELET 240 x1000/uL (130-400); RED BLOOD CELL COUNT 2.06 mill/uL (4.7-6.1); RED CELL DISTRIBUTION WIDTH 16.9 % (11.6-14.6)
[2022-02-22 09:52] LABS: CHLORIDE 108 mEq/L (98-107)
[2022-02-22 09:54] LABS: HEMATOCRIT. 19.1 % (42.0-52.0)
[2022-02-22] MEDS: KCL 10MEQ/50ML PREMIX 100 ML IV PRN ×2 (11:25→13:31)
[2022-02-22] MEDS: MORPHINE SULFATE 2 MG/ML CPJ (NOT FOR IM USE) IV PRN ×3 (14:23→23:29)
[2022-02-22] MEDS ORDERED: NALOXONE HCL 0.4MG/ML VIAL IV PRN (14:30)
[2022-02-22] MEDS: INSULIN REGULAR 100U/100ML PMX 100 ML IV SCH (18:13)
[2022-02-22 18:32] LABS: HEMATOCRIT. 26.5 % (42.0-52.0); HEMOGLOBIN. 8.7 g/dL (14.0-18.0); MEAN CORPUSCULAR HEMOGLOBIN 27.9 pg (28.0-32.0); MEAN PLATELET VOLUME 9.7 fl (7.4-10.4); PLATELET 180 x1000/uL (130-400); RED BLOOD CELL COUNT 3.12 mill/uL (4.7-6.1); RED CELL DISTRIBUTION WIDTH 20.8 % (11.6-14.6)
[2022-02-22 18:36] LABS: CHLORIDE 108 mEq/L (98-107)
[2022-02-22] MEDS: DEXT 5%/0.45% NACL 1000ML 1,000 ML IV SCH (18:53)
[2022-02-22] MEDS: MINERAL OIL 30ML BOTTLE PO SCH (18:53)
[2022-02-22 19:53] LABS: PLATELET ESTIMATE NORMAL
[2022-02-22 19:55] LABS: PLATELET ESTIMATE NORMAL
[2022-02-22 20:07] LABS: PLATELET ESTIMATE NORMAL
[2022-02-22 20:14] LABS: PLATELET ESTIMATE NORMAL
[2022-02-23] VITALS (104 sets, daily range): BP systolic 32–168; BP diastolic 3–90
[2022-02-23] MEDS: IPRATROPIUM/ALBUTEROL 0.5-3(2.5)MG/3ML NEB HHN SCH ×6 (00:32→20:29)
[2022-02-23] MEDS: BLOOD SUGAR DIAGNOSTIC STRIP TEST SCH ×12 (00:32→20:50)
[2022-02-23 02:35] LABS: CHLORIDE 105 mEq/L (98-107)
[2022-02-23 03:41] LABS: HEMATOCRIT 33.8 % (42.0-52.0); MEAN CORPUSCULAR HEMOGLOBIN 28.5 pg (28.0-32.0); PLATELET 170 x1000/uL (130-400); RED BLOOD CELL COUNT 3.85 mill/uL (4.7-6.1); RED CELL DISTRIBUTION WIDTH 19.3 % (11.6-14.6)
[2022-02-23] MEDS: MORPHINE SULFATE 2 MG/ML CPJ (NOT FOR IM USE) IV PRN (04:14)
[2022-02-23] MEDS: ONDANSETRON HCL 4MG/2ML INJ IV PRN ×4 (04:15→23:21)
[2022-02-23] MEDS ORDERED: TRAMADOL HCL/ACETAMINOPHEN 37.5/325MG TABLET PO PRN (07:30)
[2022-02-23] MEDS ORDERED: FUROSEMIDE 40MG/4ML VIAL IVP NR ×2 (07:30→16:30)
[2022-02-23] MEDS: INSULIN LISPRO (LOW DOSE) 100 UNITS/ML SUBCUT SCH ×4 (07:55→20:51)
[2022-02-23] MEDS: FAMOTIDINE 20MG/2ML VIAL IV SCH (08:09)
[2022-02-23] MEDS: ASPIRIN 81MG TABLET PO SCH (08:09)
[2022-02-23] MEDS: DOCUSATE SODIUM 100MG CAPSULE PO SCH ×2 (08:09→16:31)
[2022-02-23] MEDS: MINERAL OIL 30ML BOTTLE PO SCH ×2 (08:09→16:31)
[2022-02-23 15:27] LABS: HEMATOCRIT. 32.1 % (42.0-52.0); HEMOGLOBIN. 10.5 g/dL (14.0-18.0); MEAN CORPUSCULAR HEMOGLOBIN 28.1 pg (28.0-32.0); MEAN PLATELET VOLUME 10.3 fl (7.4-10.4); PLATELET 171 x1000/uL (130-400); RED BLOOD CELL COUNT 3.73 mill/uL (4.7-6.1); RED CELL DISTRIBUTION WIDTH 19.5 % (11.6-14.6)
[2022-02-23 15:30] LABS: CHLORIDE 103 mEq/L (98-107)
[2022-02-23 17:37] LABS: PLATELET ESTIMATE NORMAL
[2022-02-23] MEDS: DEXT 5%/0.45% NACL 1000ML 1,000 ML IV SCH (17:45)
[2022-02-24] VITALS: BP 110/73
[2022-02-24] MEDS: MORPHINE SULFATE 2 MG/ML CPJ (NOT FOR IM USE) IV PRN ×4 (00:59→18:04)
[2022-02-24] MEDS: IPRATROPIUM/ALBUTEROL 0.5-3(2.5)MG/3ML NEB HHN SCH ×5 (01:16→17:24)
[2022-02-24 03:55] VITALS: BP 112/79
[2022-02-24] MEDS: DEXT 5%/0.45% NACL 1000ML 1,000 ML IV SCH (05:43)
[2022-02-24 06:22] LABS: HEMATOCRIT. 31.8 % (42.0-52.0); HEMOGLOBIN. 10.5 g/dL (14.0-18.0); MEAN CORPUSCULAR HEMOGLOBIN 28.8 pg (28.0-32.0); MEAN CORPUSCULAR VOLUME 87.3 fL (80.0-94.0); MEAN PLATELET VOLUME 10.1 fl (7.4-10.4); PLATELET 174 x1000/uL (130-400); RED BLOOD CELL COUNT 3.64 mill/uL (4.7-6.1); RED CELL DISTRIBUTION WIDTH 19.3 % (11.6-14.6)
[2022-02-24] MEDS: BLOOD SUGAR DIAGNOSTIC STRIP TEST SCH ×4 (06:34→21:47)
[2022-02-24] MEDS: INSULIN LISPRO (LOW DOSE) 100 UNITS/ML SUBCUT SCH ×4 (07:20→21:00)
[2022-02-24 08:00] VITALS: BP 109/78
[2022-02-24] MEDS: DOCUSATE SODIUM 100MG CAPSULE PO SCH ×2 (09:37→18:03)
[2022-02-24] MEDS: ASPIRIN 81MG TABLET PO SCH (09:38)
[2022-02-24] MEDS: FAMOTIDINE 20MG/2ML VIAL IV SCH (09:38)
[2022-02-24] MEDS: MINERAL OIL 30ML BOTTLE PO SCH ×2 (09:45→17:00)
[2022-02-24 12:00] VITALS: BP 103/76
[2022-02-24 12:32] LABS: CHLORIDE 103 mEq/L (98-107)
[2022-02-24 14:02] LABS: PLATELET ESTIMATE NORMAL
[2022-02-24] MEDS: MAGNESIUM 2 G PREMIX 50 ML IV NR ×2 (15:30→19:28)
[2022-02-24 16:00] VITALS: BP 114/81
[2022-02-24] MEDS: FUROSEMIDE 40MG/4ML VIAL IVP SCH (18:15)
[2022-02-24 20:03] VITALS: BP 109/82
[2022-02-25] VITALS (7 sets, daily range): BP systolic 100–117; BP diastolic 67–79
[2022-02-25] MEDS: DEXT 5%/0.45% NACL 1000ML 1,000 ML IV SCH ×2 (00:23→17:51)
[2022-02-25] MEDS: BLOOD SUGAR DIAGNOSTIC STRIP TEST SCH ×4 (06:18→21:13)
[2022-02-25] MEDS: INSULIN LISPRO (LOW DOSE) 100 UNITS/ML SUBCUT SCH ×4 (07:20→21:00)
[2022-02-25] MEDS: IPRATROPIUM/ALBUTEROL 0.5-3(2.5)MG/3ML NEB HHN SCH ×4 (07:45→20:28)
[2022-02-25] MEDS: FUROSEMIDE 40MG/4ML VIAL IVP SCH (09:46)
[2022-02-25] MEDS: ASPIRIN 81MG TABLET PO SCH (09:46)
[2022-02-25] MEDS: DOCUSATE SODIUM 100MG CAPSULE PO SCH ×2 (09:46→17:33)
[2022-02-25] MEDS: FAMOTIDINE 20MG/2ML VIAL IV SCH (09:46)
[2022-02-25] MEDS: MORPHINE SULFATE 2 MG/ML CPJ (NOT FOR IM USE) IV PRN ×3 (09:47→22:57)
[2022-02-25] MEDS: MINERAL OIL 30ML BOTTLE PO SCH ×2 (09:52→17:31)
[2022-02-25] MEDS ORDERED: FUROSEMIDE 40MG/4ML VIAL IVP NR (14:00)
[2022-02-25 20:44] LABS: HEMOGLOBIN. 9.8 g/dL (14.0-18.0); MEAN CORPUSCULAR HEMOGLOBIN 28.8 pg (28.0-32.0); MEAN CORPUSCULAR VOLUME 88.2 fL (80.0-94.0); MEAN PLATELET VOLUME 9.2 fl (7.4-10.4); PLATELET 275 x1000/uL (130-400); RED BLOOD CELL COUNT 3.41 mill/uL (4.7-6.1); RED CELL DISTRIBUTION WIDTH 19.6 % (11.6-14.6)
[2022-02-25 23:40] LABS: PLATELET ESTIMATE NORMAL
[2022-02-26] MEDS: IPRATROPIUM/ALBUTEROL 0.5-3(2.5)MG/3ML NEB HHN SCH ×6 (00:11→20:51)
[2022-02-26 03:53] VITALS: BP 116/77
[2022-02-26] MEDS: MORPHINE SULFATE 2 MG/ML CPJ (NOT FOR IM USE) IV PRN (04:52)
[2022-02-26] MEDS: BLOOD SUGAR DIAGNOSTIC STRIP TEST SCH ×3 (06:03→14:29)
[2022-02-26] MEDS: INSULIN LISPRO (LOW DOSE) 100 UNITS/ML SUBCUT SCH ×2 (07:20→11:19)
[2022-02-26 07:39] VITALS: BP 105/78
[2022-02-26] MEDS: MINERAL OIL 30ML BOTTLE PO SCH ×2 (07:40→16:44)
[2022-02-26] MEDS: ASPIRIN 81MG TABLET PO SCH (08:20)
[2022-02-26] MEDS: FAMOTIDINE 20MG/2ML VIAL IV SCH (08:20)
[2022-02-26] MEDS: FUROSEMIDE 40MG/4ML VIAL IVP SCH (08:20)
[2022-02-26] MEDS: DOCUSATE SODIUM 100MG CAPSULE PO SCH ×2 (08:20→16:44)
[2022-02-26] MEDS: DEXT 5%/0.45% NACL 1000ML 1,000 ML IV SCH (09:13)
[2022-02-26 11:12] VITALS: BP 102/65
[2022-02-26] MEDS: ACETAMINOPHEN 325MG TABLET PO PRN (11:21)
[2022-02-26] MEDS ORDERED: FUROSEMIDE 40MG/4ML VIAL IVP NR (13:15)
[2022-02-26] MEDS ORDERED: MAGNESIUM 4 G PREMIX 100 ML IV NR (14:00)
[2022-02-26 16:00] VITALS: BP 123/74
[2022-02-26 20:00] VITALS: BP 104/78
[2022-02-26] MEDS: APIXABAN 2.5 MG TABLET PO SCH (21:13)
[2022-02-27] VITALS (9 sets, daily range): BP systolic 93–118; BP diastolic 59–79
[2022-02-27] MEDS: IPRATROPIUM/ALBUTEROL 0.5-3(2.5)MG/3ML NEB HHN SCH ×6 (00:32→20:13)
[2022-02-27] MEDS: MINERAL OIL 30ML BOTTLE PO SCH (07:58)
[2022-02-27] MEDS: ASPIRIN 81MG TABLET PO SCH (08:27)
[2022-02-27] MEDS: APIXABAN 2.5 MG TABLET PO SCH ×2 (08:27→22:52)
[2022-02-27] MEDS: ACETAMINOPHEN 325MG TABLET PO PRN ×2 (08:27→22:52)
[2022-02-27] MEDS: FAMOTIDINE 20MG/2ML VIAL IV SCH (08:29)
[2022-02-27] MEDS: FUROSEMIDE 40MG/4ML VIAL IVP SCH (08:29)
[2022-02-27] MEDS: DOCUSATE SODIUM 100MG CAPSULE PO SCH ×2 (08:41→16:27)
[2022-02-27] MEDS ORDERED: MAGNESIUM 4 G PREMIX 100 ML IV ONE (15:00)
[2022-02-27] MEDS ORDERED: AMIODARONE HCL 900 MG in DEXT 5% WATER 482 ML IV SCH (15:00)
[2022-02-27] MEDS ORDERED: AMIODARONE HCL 150 MG in DEXT 5% WATER 100 ML IV NR (15:00)
[2022-02-27] MEDS: ALBUMIN HUMAN 25GM/100ML (25%) IV SCH ×3 (15:44→22:52)
[2022-02-27] MEDS: AMIODARONE HCL 200 MG TABLET PO SCH (16:28)
[2022-02-27] MEDS: ONDANSETRON HCL 4MG/2ML INJ IV PRN (22:52)
[2022-02-28] VITALS (14 sets, daily range): BP systolic 97–117; BP diastolic 58–85
[2022-02-28] MEDS: IPRATROPIUM/ALBUTEROL 0.5-3(2.5)MG/3ML NEB HHN SCH ×6 (00:11→20:45)
[2022-02-28] MEDS: MINERAL OIL 30ML BOTTLE PO SCH ×2 (09:00→17:00)
[2022-02-28] MEDS: ASPIRIN 81MG TABLET PO SCH (11:00)
[2022-02-28] MEDS: APIXABAN 2.5 MG TABLET PO SCH ×2 (11:00→21:45)
[2022-02-28] MEDS: FAMOTIDINE 20MG TABLET PO SCH (11:00)
[2022-02-28] MEDS: FUROSEMIDE 40MG/4ML VIAL IVP SCH (11:00)
[2022-02-28] MEDS: DOCUSATE SODIUM 100MG CAPSULE PO SCH ×2 (11:00→18:23)
[2022-02-28] MEDS: SPIRONOLACTONE 25MG TABLET PO SCH (11:01)
[2022-02-28] MEDS: MAGNESIUM OXIDE 400MG TABLET PO SCH (11:03)
[2022-02-28] MEDS: AMIODARONE HCL 200 MG TABLET PO SCH ×2 (11:04→18:23)
[2022-03-01] VITALS (12 sets, daily range): BP systolic 99–130; BP diastolic 65–81
[2022-03-01] MEDS: IPRATROPIUM/ALBUTEROL 0.5-3(2.5)MG/3ML NEB HHN SCH ×6 (00:46→21:31)
[2022-03-01] MEDS: SPIRONOLACTONE 25MG TABLET PO SCH (08:43)
[2022-03-01] MEDS: AMIODARONE HCL 200 MG TABLET PO SCH ×2 (08:43→17:43)
[2022-03-01] MEDS: DOCUSATE SODIUM 100MG CAPSULE PO SCH ×2 (08:43→17:43)
[2022-03-01] MEDS: ASPIRIN 81MG TABLET PO SCH (08:43)
[2022-03-01] MEDS: APIXABAN 2.5 MG TABLET PO SCH ×2 (08:43→20:57)
[2022-03-01] MEDS: FUROSEMIDE 40MG/4ML VIAL IVP SCH (08:43)
[2022-03-01] MEDS: FAMOTIDINE 20MG TABLET PO SCH (08:43)
[2022-03-01] MEDS: MAGNESIUM OXIDE 400MG TABLET PO SCH (08:44)
[2022-03-01] MEDS: MINERAL OIL 30ML BOTTLE PO SCH ×2 (09:35→17:00)
[2022-03-01] MEDS ORDERED: DEXTROSE 50% WATER 50ML SYRINGE IV PRN (16:00)
[2022-03-01] MEDS: INSULIN LISPRO 100 UNITS/ML SUBCUT SCH ×2 (17:41→20:57)
[2022-03-01] MEDS: BLOOD SUGAR DIAGNOSTIC STRIP TEST SCH ×2 (17:41→20:57)
[2022-03-02] VITALS: BP 111/69
[2022-03-02] MEDS: IPRATROPIUM/ALBUTEROL 0.5-3(2.5)MG/3ML NEB HHN SCH ×6 (01:42→21:33)
[2022-03-02 04:00] VITALS: BP 106/64
[2022-03-02] MEDS: ACETAMINOPHEN 325MG TABLET PO PRN ×2 (05:02→23:32)
[2022-03-02] MEDS: BLOOD SUGAR DIAGNOSTIC STRIP TEST SCH ×4 (06:16→21:43)
[2022-03-02 07:50] VITALS: BP 98/70
[2022-03-02 07:52] LABS: HEMATOCRIT. 31.3 % (42.0-52.0); HEMOGLOBIN. 10.1 g/dL (14.0-18.0); MEAN CORPUSCULAR HEMOGLOBIN 28.4 pg (28.0-32.0); MEAN CORPUSCULAR VOLUME 87.7 fL (80.0-94.0); MEAN PLATELET VOLUME 9.2 fl (7.4-10.4); PLATELET 695 x1000/uL (130-400); RED BLOOD CELL COUNT 3.57 mill/uL (4.7-6.1); RED CELL DISTRIBUTION WIDTH 18.9 % (11.6-14.6)
[2022-03-02] MEDS: INSULIN LISPRO 100 UNITS/ML SUBCUT SCH ×4 (08:10→21:00)
[2022-03-02] MEDS: MAGNESIUM OXIDE 400MG TABLET PO SCH (08:39)
[2022-03-02] MEDS: APIXABAN 2.5 MG TABLET PO SCH ×2 (08:39→21:50)
[2022-03-02] MEDS: DOCUSATE SODIUM 100MG CAPSULE PO SCH ×2 (08:39→17:13)
[2022-03-02] MEDS: FUROSEMIDE 40MG/4ML VIAL IVP SCH (08:39)
[2022-03-02] MEDS: ASPIRIN 81MG TABLET PO SCH (08:39)
[2022-03-02] MEDS: AMIODARONE HCL 200 MG TABLET PO SCH ×2 (08:39→17:13)
[2022-03-02] MEDS: FAMOTIDINE 20MG TABLET PO SCH (08:39)
[2022-03-02] MEDS: SPIRONOLACTONE 25MG TABLET PO SCH (08:39)
[2022-03-02] MEDS: MINERAL OIL 30ML BOTTLE PO SCH ×2 (09:00→17:13)
[2022-03-02] MEDS: IMATINIB 400 MG PO SCH ×2 (09:00→09:16)
[2022-03-02] MEDS: ALLOPURINOL 300 MG TABLET PO SCH (09:15)
[2022-03-02 12:00] VITALS: BP 113/72
[2022-03-02 16:00] VITALS: BP 104/77
[2022-03-02] MEDS ORDERED: VANCOMYCIN 1G PREMIX 200 ML IV NR (16:00)
[2022-03-02 20:00] VITALS: BP 110/77
[2022-03-02 22:48] LABS: PLATELET ESTIMATE INCREASED
[2022-03-03] VITALS: BP 91/60
[2022-03-03] MEDS: IPRATROPIUM/ALBUTEROL 0.5-3(2.5)MG/3ML NEB HHN SCH ×6 (00:44→20:43)
[2022-03-03 04:00] VITALS: BP 101/72
[2022-03-03] MEDS: VANCOMYCIN 750MG PREMIX 150 ML IV SCH ×2 (06:53→17:07)
[2022-03-03] MEDS: BLOOD SUGAR DIAGNOSTIC STRIP TEST SCH ×4 (06:53→21:00)
[2022-03-03 08:00] VITALS: BP 110/67
[2022-03-03] MEDS: INSULIN LISPRO 100 UNITS/ML SUBCUT SCH ×4 (08:10→21:00)
[2022-03-03] MEDS: IMATINIB 400 MG PO SCH (08:27)
[2022-03-03] MEDS: ALLOPURINOL 300 MG TABLET PO SCH (08:28)
[2022-03-03] MEDS: ACETAMINOPHEN 325MG TABLET PO PRN ×2 (08:28→16:01)
[2022-03-03] MEDS: MINERAL OIL 30ML BOTTLE PO SCH ×2 (08:28→16:53)
[2022-03-03] MEDS: FUROSEMIDE 40MG/4ML VIAL IVP SCH (08:28)
[2022-03-03] MEDS: AMIODARONE HCL 200 MG TABLET PO SCH ×2 (08:28→16:10)
[2022-03-03] MEDS: DOCUSATE SODIUM 100MG CAPSULE PO SCH ×2 (08:28→16:10)
[2022-03-03] MEDS: MAGNESIUM OXIDE 400MG TABLET PO SCH (08:28)
[2022-03-03] MEDS: FAMOTIDINE 20MG TABLET PO SCH (08:29)
[2022-03-03] MEDS: SPIRONOLACTONE 25MG TABLET PO SCH (08:29)
[2022-03-03] MEDS: APIXABAN 2.5 MG TABLET PO SCH ×2 (08:29→22:43)
[2022-03-03] MEDS: ASPIRIN 81MG TABLET PO SCH (08:29)
[2022-03-03 12:00] VITALS: BP 95/68
[2022-03-03 16:00] VITALS: BP 113/72
[2022-03-03 20:49] VITALS: BP 92/60
[2022-03-04] VITALS: BP 94/59
[2022-03-04] MEDS: IPRATROPIUM/ALBUTEROL 0.5-3(2.5)MG/3ML NEB HHN SCH ×5 (00:39→16:56)
[2022-03-04 04:00] VITALS: BP 114/81
[2022-03-04 04:40] LABS: CHLORIDE 99 mEq/L (98-107)
[2022-03-04 05:56] LABS: HEMATOCRIT. 31.1 % (42.0-52.0); HEMOGLOBIN. 10.1 g/dL (14.0-18.0); MEAN CORPUSCULAR HEMOGLOBIN 28.3 pg (28.0-32.0); MEAN CORPUSCULAR VOLUME 86.7 fL (80.0-94.0); MEAN PLATELET VOLUME 8.8 fl (7.4-10.4); PLATELET 776 x1000/uL (130-400); RED BLOOD CELL COUNT 3.58 mill/uL (4.7-6.1); RED CELL DISTRIBUTION WIDTH 19.7 % (11.6-14.6)
[2022-03-04] MEDS: BLOOD SUGAR DIAGNOSTIC STRIP TEST SCH ×3 (06:33→17:37)
[2022-03-04] MEDS: VANCOMYCIN 750MG PREMIX 150 ML IV SCH (06:57)
[2022-03-04] MEDS: INSULIN LISPRO 100 UNITS/ML SUBCUT SCH ×3 (07:26→17:38)
[2022-03-04 08:00] VITALS: BP 116/74
[2022-03-04] MEDS: FUROSEMIDE 40MG/4ML VIAL IVP SCH (08:28)
[2022-03-04] MEDS: MINERAL OIL 30ML BOTTLE PO SCH ×2 (08:29→17:00)
[2022-03-04] MEDS: DOCUSATE SODIUM 100MG CAPSULE PO SCH ×2 (08:29→17:00)
[2022-03-04] MEDS: APIXABAN 2.5 MG TABLET PO SCH (08:29)
[2022-03-04] MEDS: AMIODARONE HCL 200 MG TABLET PO SCH ×2 (08:29→17:35)
[2022-03-04] MEDS: SPIRONOLACTONE 25MG TABLET PO SCH (08:29)
[2022-03-04] MEDS: IMATINIB 400 MG PO SCH (08:29)
[2022-03-04] MEDS: MAGNESIUM OXIDE 400MG TABLET PO SCH (08:29)
[2022-03-04] MEDS: FAMOTIDINE 20MG TABLET PO SCH (08:29)
[2022-03-04] MEDS: ASPIRIN 81MG TABLET PO SCH (08:29)
[2022-03-04] MEDS: ALLOPURINOL 300 MG TABLET PO SCH (08:33)
[2022-03-04] MEDS ORDERED: FUROSEMIDE 100MG/10ML VIAL IVP SCH (10:00)
[2022-03-04 12:00] VITALS: BP 109/61
[2022-03-04] MEDS ORDERED: MAGNESIUM 4 G PREMIX 100 ML IV SCH (12:00)
[2022-03-04 15:31] VITALS: BP 103/68
[2022-03-04 16:00] VITALS: BP 103/68
[2022-03-04] MEDS ORDERED: VANCOMYCIN 1G PREMIX 200 ML IV SCH (18:00)
[2022-03-05] MEDS ORDERED: FUROSEMIDE 40MG TABLET PO SCH (09:00)
[2022-03-05 10:26] LABS: NUCLEATED RED BLOOD CELLS 1 /100 WBC; PLATELET ESTIMATE INCREASED
== END 2022-03-04 19:20 | disposition home or self-care (01) | DRG 163 ==
LOC: ER 05:03 → CVICU 07:20 → EDBEDREQ 07:57 → EDBEDREQTM 07:57 → 3WST 02-23 19:00 → 5EST 02-27 15:18 → 7WST 03-01 23:40
PROVIDERS: ADMIT Internal Medicine; ATTEND Internal Medicine
PROC: 02QJ0ZZ Repair Tricuspid Valve, Open Approach (ICD-10-PCS; principal; 2022-02-21)
PROC: 02RG08Z Replacement of Mitral Valve with Zooplastic Tissue, Open Approach (ICD-10-PCS; 2022-02-21)
PROC: 5A1221Z Performance of Cardiac Output, Continuous (ICD-10-PCS; 2022-02-21)
PROC: 02L70ZK Occlusion of Left Atrial Appendage, Open Approach (ICD-10-PCS; 2022-02-21)
PROC: B24BZZ4 Ultrasonography of Heart with Aorta, Transesophageal (ICD-10-PCS; 2022-02-21)
PROC: 02580ZZ Destruction of Conduction Mechanism, Open Approach (ICD-10-PCS; 2022-02-21)
PROC: 30233N1 Transfusion of Nonautologous Red Blood Cells into Peripheral Vein, Percutaneous Approach (ICD-10-PCS; 2022-02-22)
DX: I08.1 Rheumatic disorders of both mitral and tricuspid valves (principal); J96.01 Acute respiratory failure with hypoxia; I50.23 Acute on chronic systolic (congestive) heart failure; N17.9 Acute kidney failure, unspecified; C95.90 Leukemia, unspecified not having achieved remission; I42.9 Cardiomyopathy, unspecified; I48.19 Other persistent atrial fibrillation; I11.0 Hypertensive heart disease with heart failure; E78.5 Hyperlipidemia, unspecified; I47.1 Supraventricular tachycardia; J44.9 Chronic obstructive pulmonary disease, unspecified; Z20.822 Contact with and (suspected) exposure to COVID-19; D64.9 Anemia, unspecified; I48.92 Unspecified atrial flutter; R73.9 Hyperglycemia, unspecified; Z79.899 Other long term (current) drug therapy; Z95.2 Presence of prosthetic heart valve
CPT/HCPCS: 36415; 36600; 71045; 80048; 80051; 80053; 80202; 82375; 82550; 82805; 82962; 83036; 83735; 83880; 84132; 84145; 84484; 84520; 85025; 85027; 85347; 85379; 86850; 86900; 86920; 87070; 87075; 87426; 88304; 93005; 93306; 93880; 94640; 97110; 97116; 97162; 97166; 97530; 97535; 99285; C1725; C1729; C1751; C1758; J0282; J0690; J1250; J1265; J1644; J1815; J1885; J1940; J2260; J2270; J2405; J2704; J2710; J2720; J3010; J3370; J3475; J3480; J3490; J7030; J7060; L3908; P9016; P9041; P9047; Q9957